=== PATIENT | male | born 1995 | race Two or more races ===

== ENCOUNTER 2020-08-15 20:47 | Emergency (ER) | payer OTHER ==
[2020-08-15 21:03] VITALS: BP 123/82; PULSE 116; TEMP 101.7; BMI 46.0
[2020-08-15] MEDS ORDERED: ACETAMINOPHEN 500 MG TABLET (FP) PO ONE (21:06)
[2020-08-15] MEDS ORDERED: ACETAMINOPHEN 325 MG TABLET (FP) ONE (21:40)
== END 2020-08-15 22:03 | disposition home or self-care (01) ==
LOC: JER 20:47
DX: R50.9 Fever, unspecified (principal); Z11.52 Encounter for screening for COVID-19
CPT/HCPCS: 99283-25; C9803; U0003; U0005